=== PATIENT | male | born 1995 | race Caucasian/White ===

== ENCOUNTER 2018-03-22 11:33 | Emergency (ER) | payer OTHER ==
[2018-03-22] MEDS ORDERED: ACETAMINOPHEN 325 MG TAB As Ordered (13:05)
== END 2018-03-22 16:34 | disposition home or self-care (01) ==
LOC: M ED 11:33
DX: S80.01XA Contusion of right knee, initial encounter (principal); S23.3XXA Sprain of ligaments of thoracic spine, initial encounter; S33.5XXA Sprain of ligaments of lumbar spine, initial encounter; V49.40XA Driver injured in collision with unspecified motor vehicles in traffic accident, initial encounter; Y92.410 Unspecified street and highway as the place of occurrence of the external cause; Z88.1 Allergy status to other antibiotic agents
CPT/HCPCS: 72110

== ENCOUNTER 2020-07-09 13:16 | Emergency (ER) | payer OTHER ==
[~2020-07-09] VITALS: Ht 180.3 cm; Wt 99.5 kg
[2020-07-09] MEDS ORDERED: LIDO1PAD (13:40)
[2020-07-09 14:58] VITALS: BP 154/82
== END 2020-07-09 15:00 | disposition home or self-care (01) ==
LOC: M ED 13:16
DX: F60.9 Personality disorder, unspecified (principal); F41.1 Generalized anxiety disorder; F17.200 Nicotine dependence, unspecified, uncomplicated; Z79.899 Other long term (current) drug therapy

== ENCOUNTER 2020-08-03 13:54 | Emergency (ER) | payer OTHER ==
[~2020-08-03] VITALS: Ht 182.9 cm; Wt 98.7 kg
[~2020-08-03 13:54] MED LIST: LIDO1PAD
[2020-08-03] MEDS ORDERED: IBUP-1114 PO (14:02)
[2020-08-03] MEDS ORDERED: MUCI600T31 PO (14:03)
[2020-08-03] MEDS ORDERED: CLAR10CA3 PO (14:03)
[2020-08-03 15:51] VITALS: BP 128/61
== END 2020-08-03 15:55 | disposition home or self-care (01) ==
LOC: M ED 13:54
DX: J02.8 Acute pharyngitis due to other specified organisms (principal); F17.200 Nicotine dependence, unspecified, uncomplicated; Z88.1 Allergy status to other antibiotic agents